=== PATIENT | male | born 1990 | race Caucasian/White ===

== ENCOUNTER 2021-09-25 12:48 | Emergency (ER) | payer OTHER ==
[2021-09-25 13:24] LABS: Absolute Lymphocytes (CBC) 2.7 K/uL (0.7-4.9); Hematocrit 41.4 % (39.6-49.0); Lymphocytes % 25.6 % (15.3-44.8); MCV 86.4 fL (80-100); MPV 6.8 fL (7.6-11.3)
[2021-09-25 13:29] LABS: Protime INR 1.11
[2021-09-25 13:42] LABS: Potassium 3.8 mmol/L (3.5-5.1); Troponin High Sensitivity 49.2 pg/mL (<58.9)
[2021-09-25 13:51] LABS: Urine Blood Negative (Negative); Urine Glucose Negative (Negative); Urine Protein Negative (Negative); Urine Specific Gravity >=1.030 (1.005-1.030); Urine pH 5.5 (5.0-7.0)
[2021-09-25 14:04] LABS: Barbiturates NEGATIVE (NEGATIVE); Benzodiazepines NEGATIVE (NEGATIVE); Cocaine NEGATIVE (NEGATIVE); METHAMPHETAM NEGATIVE (NEGATIVE); Methadone NEGATIVE (NEGATIVE); Opiates NEGATIVE (NEGATIVE); Phencyclidine NEGATIVE (NEGATIVE); THC Cannibis NEGATIVE (NEGATIVE)
--- NOTE | 2021-09-25 14:07 | RAD REPORT ---
EXAM DESCRIPTION: RAD - Chest Single View - 09/25/2021 1:51 pm CLINICAL HISTORY: CHEST PAIN Chest pain. COMPARISON: No comparisons FINDINGS: Portable technique limits examination quality. The lungs are grossly clear. The heart is normal in size. No displaced fractures. IMPRESSION: No acute intrathoracic process suspected.
[2021-09-25 14:13] LABS: T3 Free 3.1 pg/mL (2.18-3.98); Thyroid Stimulating Hormone 0.759 uIU/mL (0.360-3.740)
--- NOTE | 2021-09-25 17:55 | EDPHYS ---
Physician Documentation [facility] Name: Kyree Flower Age: 31 yrs Sex: Male : 1990 Arrival Date: 09/25/2021 Time: 12:50 Bed 14 Private MD: Sarwat Uribe E ED Physician Cruz Rodriguez HPI: 09/25 13:25 This 31 yrs old Male presents to ER via Ambulatory with complaints of Palpitations, cp Chest Pain. 13:25 The patient presents with a history of heart racing. Context: The symptoms occur at cp rest. 13:25 Onset: The symptoms/episode began/occurred this past weekend. cp 13:25 Duration: The patient or guardian reports multiple episodes, that are intermittent, cp with no pattern. Associated signs and symptoms: Pertinent positives: chest pain, Pertinent negatives: cough, fever, lightheadedness, syncope, vomiting. Severity of symptoms: in the emergency department the symptoms have improved markedly. Historical: - Allergies: 13:04 No Known Allergies; iw - Home Meds: 13:04 None [Active]; iw - PMHx: 13:04 None; iw - Immunization history:: Adult Immunizations up to date, Client reports having NOT received the Covid vaccine. - Social history:: Smoking status: Patient denies any tobacco usage or history of. Patient/guardian denies using alcohol. ROS: 13:30 Constitutional: Negative for body aches, chills, fever, poor PO intake. cp 13:30 Cardiovascular: Positive for palpitations, Negative for chest pain, edema. cp 13:30 Respiratory: Negative for cough, shortness of breath, wheezing. 13:30 Eyes: Negative for injury, pain, redness, and discharge. cp 13:30 ENT: Negative for drainage from ear(s), ear pain, sore throat, difficulty swallowing, difficulty handling secretions. 13:30 Abdomen/GI: Negative for abdominal pain, nausea, vomiting, and diarrhea, constipation. 13:30 Back: Negative for pain at rest, pain with movement, radiated pain. cp 13:30 Neuro: Negative for altered mental status, dizziness, headache, numbness, syncope, weakness. 13:30 All other systems are negative. Exam: 13:30 ECG was reviewed by the Attending Physician. cp 13:35 Constitutional: The patient appears in no acute distress, alert, awake, cp non-diaphoretic, non-toxic, well developed, well nourished. 13:35 Head/Face: Normocephalic, atraumatic. cp 13:35 Eyes: Periorbital structures: appear normal, Conjunctiva: normal, no exudate, no injection, Sclera: no appreciated abnormality, Lids and lashes: appear normal, bilaterally. 13:35 ENT: External ear(s): are unremarkable, Nose: is normal, Mouth: Lips: moist, Oral mucosa: pink and intact, moist, Posterior pharynx: Airway: no evidence of obstruction, patent. 13:35 Neck: ROM/movement: is normal, is supple, without pain, no range of motions limitations. 13:35 Chest/axilla: Inspection: normal. 13:35 Cardiovascular: Rate: normal, Rhythm: regular, Edema: is not appreciated, JVD: is not appreciated. 13:35 Respiratory: the patient does not display signs of respiratory distress, Respirations: normal, no use of accessory muscles, no retractions, labored breathing, is not present, Breath sounds: are clear throughout, no decreased breath sounds, no stridor, no wheezing. 13:35 Abdomen/GI: Inspection: abdomen appears normal, Palpation: abdomen is soft and non-tender, in all quadrants. 13:35 Back: pain, is absent, ROM is normal. 13:35 Neuro: Orientation: to person, place \T\ time. Mentation: is normal, Cerebellar function: is grossly normal, Motor: moves all fours, strength is normal, Sensation: is normal. Vital Signs: 13:05 BP 117 / 80; Pulse 88; Resp 16; Temp 97.8; Pulse Ox 97% on R/A; iw 15:01 BP 114 / 64; Pulse 74; Resp 18; Pulse Ox 96% on R/A; ld1 16:18 BP 108 / 73; Pulse 63; Resp 18; Pulse Ox 97% on R/A; ld1 17:42 BP 106 / 64; Pulse 60; Resp 18; Pulse Ox 98% on R/A; ld1 MDM: 13:06 Patient medically screened. [facility] 17:54 Data reviewed: vital signs, nurses notes, lab test result(s), EKG, radiologic studies, cp plain films. 17:54 Test interpretation: by ED physician or midlevel provider: ECG, plain radiologic cp studies. 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 Special discussion: Based on the patient's history, exam, and Dx evaluation, there is no indication for emergent intervention or inpatient Tx. It is understood by the patient/guardian that if the Sx's persist or worsen they need to return immediately for re-evaluation. 09/25 13:05 Order name: Basic Metabolic Panel; Complete Time: 15:00 iw 09/25 15:00 Interpretation: Normal except: GLUC 121; GFR 85. cp 09/25 13:05 Order name: CBC with Diff; Complete Time: 15:00 iw 09/25 15:00 Interpretation: Normal except: PLT 434; MPV 6.8. cp 09/25 13:05 Order name: PT-INR; Complete Time: 15:00 iw 09/25 13:05 Order name: Troponin HS; Complete Time: 15:00 iw 09/25 15:10 Interpretation: Troponin HS 49.2; Reviewed. cp 09/25 13:23 Order name: D-Dimer; Complete Time: 15:00 cp 09/25 15:00 Interpretation: Reviewed. cp 09/25 13:23 Order name: UDS; Complete Time: 15:00 cp 09/25 13:05 Order name: XRAY Chest (1 view); Complete Time: 15:00 iw 09/25 13:05 Order name: EKG; Complete Time: 13: iw 09/25 13:05 Order name: Cardiac monitoring; Complete Time: 13: iw 09/25 13:05 Order name: EKG - Nurse/Tech; Complete Time: 13: iw 09/25 13:23 Order name: TSH; Complete Time: 15:00 cp 09/25 13:23 Order name: T3 Free; Complete Time: 15:00 cp 09/25 13:51 Order name: Urine Dipstick-Ancillary; Complete Time: 15:00 EDMS 09/25 15:23 Order name: Troponin High Sensitivity: repeat \T\1630; Complete Time: 17:45 cp 09/25 17:46 Interpretation: Reviewed. cp 09/25 13:05 Order name: IV Saline Lock; Complete Time: 13:18 iw 09/25 13:05 Order name: Labs collected and sent; Complete Time: : iw 09/25 13:05 Order name: O2 Per Protocol; Complete Time: 13: iw 09/25 13:05 Order name: O2 Sat Monitoring; Complete Time: : iw 09/25 13:23 Order name: Urine Dipstick-Ancillary (obtain specimen); Complete Time: 13:51 cp EC:30 Rate is 80 beats/min. Rhythm is regular. WI interval is normal. QRS interval is normal. cp QT interval is normal. T waves are Inverted in lead aVR. Interpreted by me. Reviewed by me. Administered Medications: No medications were administered Disposition Summary: 09/25/21 17:54 Discharge Ordered Location: Home cp Problem: new cp Symptoms: have improved cp Condition: Stable cp Diagnosis - Palpitations cp - Chest pain, unspecified cp Followup: cp - With: Yusef Ortiz MD - When: 2 - 3 days - Reason: Recheck today's complaints Discharge Instructions: - Discharge Summary Sheet cp - Nonspecific Chest Pain, Adult cp - Palpitations cp - Aspirin and Your Heart cp Forms: - Medication Reconciliation Form cp - Thank You Letter cp - Antibiotic Education cp - Prescription Opioid Use cp Signatures: Dispatcher [employer] Cruz Razo MD MD cha Williams, Irene, RN Cruz German PA PA cp Nichole Valero, RN RN ld1
--- NOTE | 2021-09-25 17:55 | ER ---
Nurse's Notes [facility] Name: Kyree Flower Age: 31 yrs Sex: Male : 1990 Arrival Date: 09/25/2021 Time: 12:50 Bed 14 Private MD: Sarwat Uribe E Diagnosis: Palpitations;Chest pain, unspecified Presentation: 09/25 13:03 Chief complaint: Patient states: chest palpitations started this weekend. Coronavirus iw screen: At this time, the client does not indicate any symptoms associated with coronavirus-19. Ebola Screen: Patient negative for fever greater than or equal to 101.5 degrees Fahrenheit, and additional compatible Ebola Virus Disease symptoms Patient denies exposure to infectious person. Patient denies travel to an Ebola-affected area in the 21 days before illness onset. No symptoms or risks identified at this time. Initial Sepsis Screen: Does the patient meet any 2 criteria? No. Patient's initial sepsis screen is negative. Does the patient have a suspected source of infection? No. Patient's initial sepsis screen is negative. Risk Assessment: Do you want to hurt yourself or someone else? Patient reports no desire to harm self or others. Onset of symptoms was September 23, 2021. 13:03 Method Of Arrival: Ambulatory iw 13:03 Acuity: SHANTEL 3 iw Historical: - Allergies: 13:04 No Known Allergies; iw - Home Meds: 13:04 None [Active]; iw - PMHx: 13:04 None; iw - Immunization history:: Adult Immunizations up to date, Client reports having NOT received the Covid vaccine. - Social history:: Smoking status: Patient denies any tobacco usage or history of. Patient/guardian denies using alcohol. Screenin:19 Abuse screen: Denies threats or abuse. Denies injuries from another. Nutritional ld1 screening: No deficits noted. Tuberculosis screening: No symptoms or risk factors identified. Fall Risk None identified. Assessment: 13:19 General: Appears in no apparent distress. comfortable, Behavior is calm, cooperative, ld1 appropriate for age. Pain: Complains of pain in chest Pain does not radiate. Pain currently is 8 out of 10 on a pain scale. Quality of pain is described as throbbing, Pain began 2-3 days ago. Neuro: Level of Consciousness is awake, alert, obeys commands, Oriented to person, place, time, situation. Cardiovascular: Capillary refill < 3 seconds Patient's skin is warm and dry. Rhythm is sinus rhythm. Respiratory: Airway is patent Respiratory effort is even, unlabored. GI: Abdomen is flat, non-distended. : No signs and/or symptoms were reported regarding the genitourinary system. EENT: No signs and/or symptoms were reported regarding the EENT system. Derm: No signs and/or symptoms reported regarding the dermatologic system. Musculoskeletal: No signs and/or symptoms reported regarding the musculoskeletal system. Vital Signs: 13:05 BP 117 / 80; Pulse 88; Resp 16; Temp 97.8; Pulse Ox 97% on R/A; iw 15:01 BP 114 / 64; Pulse 74; Resp 18; Pulse Ox 96% on R/A; ld1 16:18 BP 108 / 73; Pulse 63; Resp 18; Pulse Ox 97% on R/A; ld1 17:42 BP 106 / 64; Pulse 60; Resp 18; Pulse Ox 98% on R/A; ld1 ED Course: 12:50 Patient arrived in ED. rg4 12:50 Sarwat Uribe MD is Private Physician. rg4 13:04 Triage completed. iw 13:04 Arm band placed on. iw 13:05 Cruz Boyle PA is PHCP. cp 13:05 Cruz Rodriguez MD is Attending Physician. cp 13:17 Nichole Valero, KELLY is Primary Nurse. ld1 13:19 Patient has correct armband on for positive identification. Placed in gown. Bed in low ld1 position. Call light in reach. Side rails up X2. quality assurance monitor body on. Pulse ox on. NIBP on. Door closed. Noise minimized. Warm blanket given. 13:19 No provider procedures requiring assistance completed. Patient maintains SpO2 ld1 saturation greater than 95% on room air. 13:51 UDS Sent. ld1 13:51 T3 Free Sent. ld1 13:51 TSH Sent. ld1 13:51 D-Dimer Sent. ld1 13:53 XRAY Chest (1 view) In Process Unspecified. EDMS 17:53 Yusef Ortiz MD is Referral Physician. cp 18:04 IV discontinued, intact, bleeding controlled, No redness/swelling at site. ld1 Administered Medications: No medications were administered Medication: 13:19 VIS not applicable for this client. ld1 Outcome: 17:54 Discharge ordered by . arvin 18:04 Discharged to home ambulatory. ld1 18:04 Condition: stable 18:04 Discharge instructions given to patient, Instructed on discharge instructions, follow up and referral plans. Demonstrated understanding of instructions, follow-up care. 18:05 Patient left the ED. ld1 Signatures: Dispatcher [employer] EDBrianna Arnett RN RN Cruz Reyez PA PA cp Garcia, Rubi rg4 Nichole Valero RN RN ld1
[2021-09-25 19:12] VITALS: TEMP 97.8
[2021-09-25 19:18] VITALS: BP 106/64; O2SAT 98
--- NOTE | 2021-09-26 07:55 | EKG ---
Test Date: 2021-09-25 Test Time: 13:08:59 Data Integration Developer: JR Butler MEASUREMENT RESULTS: Intervals: Rate: 80 KS: 174 QRSD: 76 QT: 364 QTc: 419 [place]: P: 53 KS: 174 QRS: 20 T: 43 INTERPRETIVE STATEMENTS: Normal sinus rhythm Low voltage QRS Possible Inferior infarct, age undetermined Abnormal ECG No previous ECG available for comparison Electronically Signed On 09-26-21 07:52:38 CDT by Junior Pool
== END 2021-09-25 18:05 | disposition home or self-care (01) ==
LOC: ER 12:48
DX: R07.9 Chest pain, unspecified (principal); R00.2 Palpitations
CPT/HCPCS: 36415; 71045; 80048; 80307; 81003; 84443; 84481; 84484; 85025; 85379; 85610; 93005

== ENCOUNTER 2022-08-14 06:46 | Emergency (ER) | payer OTHER ==
[2022-08-14] MEDS ORDERED: KETOROLAC 30 MG/ML INJ ONE (07:22)
[2022-08-14] MEDS ORDERED: CEFTRIAXONE 1000 MG/VIAL ONE (07:22)
[2022-08-14] MEDS ORDERED: AZITHROMYCIN 250 MG TAB ONE (07:22)
[2022-08-14] MEDS ORDERED: ONDANSETRON 4 MG/2 ML VIAL ONE (07:22)
[2022-08-14 07:23] LABS: Lymphocytes % 39.9 % (15.3-44.8); MCV 85.5 fL (80-100); MPV 6.8 fL (7.6-11.3); RBC Red Blood Cell Count 5.15 M/uL (4.33-5.43)
[2022-08-14] MEDS ORDERED: NA CHLORIDE 0.9% 1,000 ML ONE (07:23)
[2022-08-14 07:49] LABS: Albumin 3.9 g/dL (3.4-5.0); Bilirubin Total 1.5 mg/dL (0.2-1.0); Potassium 3.9 mEq/L (3.5-5.1); Protein, Total 7.3 g/dL (6.4-8.2)
[2022-08-14 08:20] LABS: Specific Gravity 1.023 (1.005-1.030); Urine Bacteria None Seen /HPF (<20); Urine Bilirubin NEGATIVE (Negative); Urine Blood Trace (Negative); Urine Clarity Clear (Clear); Urine Color Light-Yellow (Yellow); Urine Glucose NEGATIVE (Negative); Urine Mucus Slight /HPF (None Seen); Urine Protein TRACE (Negative); Urine RBC <5 /HPF (None Seen); Urine Urobilinogen Normal (Normal); Urine pH 5.5 (5.0-7.0)
[2022-08-14 08:39] LABS: Platelet Estimate ADEQ
[2022-08-14 08:40] LABS: Blood Morphology Comment NOT SEEN (NOT SEEN)
--- NOTE | 2022-08-14 08:41 | RAD REPORT ---
EXAM DESCRIPTION: US - Scrotum Testicles - 08/14/2022 7:38 am CLINICAL HISTORY: Right Testicular pain COMPARISON: None FINDINGS: Right testicle measures 4.2 x 2.2 x 3 centimeters. Echotexture is homogeneous. Normal bloo d flow Left testicle measures 4 x 2.2 x 2.4 centimeters. Echotexture is homogeneous. Normal blood flow The epididymides are normal in size and echotexture. Normal blood flow is seen. IMPRESSION: Unremarkable exam
--- NOTE | 2022-08-14 09:01 | EDPHYS ---
Physician Documentation [facility] Name: Kyree Flower Age: 32 yrs Sex: Male : 1990 Arrival Date: 08/14/2022 Time: 06:46 Bed 13 Private MD: ED Physician Palmer Salazar HPI: 08/14 07:07 This 32 yrs old Male presents to ER via Ambulatory with complaints of rodrick Testicular Pain. 07:07 The patient presents with scrotal pain, of the right side. Onset: The symptoms/episode rodrick began/occurred 5 day(s) ago. Modifying factors: The symptoms are alleviated by remaining still, the symptoms are aggravated by movement. Associated signs and symptoms: The patient has no apparent associated signs or symptoms. Severity of symptoms: At their worst the symptoms were mild, moderate, in the emergency department the symptoms are actually worse, mildly. The patient has not experienced similar symptoms in the past. Historical: - Allergies: 06:58 No Known Allergies; as6 - Home Meds: 06:58 None [Active]; as6 - PMHx: 06:58 None; as6 - PSHx: 06:58 Vasectomy; skin ca removal; as6 - Immunization history:: Client reports receiving the 2nd dose of the Covid vaccine, moderna. - Social history:: Smoking status: Patient denies any tobacco usage or history of. ROS: 07:07 Constitutional: Negative for fever, chills, and weight loss, Eyes: Negative for injury, rodrick pain, redness, and discharge, ENT: Negative for injury, pain, and discharge, Neck: Negative for injury, pain, and swelling, Cardiovascular: Negative for chest pain, palpitations, and edema, Respiratory: Negative for shortness of breath, cough, wheezing, and pleuritic chest pain, Abdomen/GI: Negative for abdominal pain, nausea, vomiting, diarrhea, and constipation, Back: Negative for injury and pain, MS/Extremity: Negative for injury and deformity, Skin: Negative for injury, rash, and discoloration, Neuro: Negative for headache, weakness, numbness, tingling, and seizure, Psych: Negative for depression, anxiety, suicide ideation, homicidal ideation, and hallucinations, Allergy/Immunology: Negative for hives, rash, and allergies, Endocrine: Negative for neck swelling, polydipsia, polyuria, polyphagia, and marked weight changes, Hematologic/Lymphatic: Negative for swollen nodes, abnormal bleeding, and unusual bruising. 07:07 : Positive for testicular pain of the right testicle. Exam: 07:07 Constitutional: This is a well developed, well nourished patient who is awake, alert, rodrick and in no acute distress. Head/Face: Normocephalic, atraumatic. Eyes: Pupils equal round and reactive to light, extra-ocular motions intact. Lids and lashes normal. Conjunctiva and sclera are non-icteric and not injected. Cornea within normal limits. Periorbital areas with no swelling, redness, or edema. ENT: Nares patent. No nasal discharge, no septal abnormalities noted. Tympanic membranes are normal and external auditory canals are clear. Oropharynx with no redness, swelling, or masses, exudates, or evidence of obstruction, uvula midline. Mucous membranes moist. Neck: Trachea midline, no thyromegaly or masses palpated, and no cervical lymphadenopathy. Supple, full range of motion without nuchal rigidity, or vertebral point tenderness. No Meningismus. Chest/axilla: Normal chest wall appearance and motion. Nontender with no deformity. No lesions are appreciated. Cardiovascular: Regular rate and rhythm with a normal S1 and S2. No gallops, murmurs, or rubs. Normal PMI, no JVD. No pulse deficits. Respiratory: Lungs have equal breath sounds bilaterally, clear to auscultation and percussion. No rales, rhonchi or wheezes noted. No increased work of breathing, no retractions or nasal flaring. Abdomen/GI: Soft, non-tender, with normal bowel sounds. No distension or tympany. No guarding or rebound. No evidence of tenderness throughout. Back: No spinal tenderness. No costovertebral tenderness. Full range of motion. Skin: Warm, dry with normal turgor. Normal color with no rashes, no lesions, and no evidence of cellulitis. MS/ Extremity: Pulses equal, no cyanosis. Neurovascular intact. Full, normal range of motion. Neuro: Awake and alert, GCS 15, oriented to person, place, time, and situation. Cranial nerves II-XII grossly intact. Motor strength 5/5 in all extremities. Sensory grossly intact. Cerebellar exam normal. Normal gait. Psych: Awake, alert, with orientation to person, place and time. Behavior, mood, and affect are within normal limits. 07:07 : CVA tenderness, is absent, Male external genitalia: Circumcision noted. swelling: of the right testicle is noted, testicle, tenderness, of the right testicle is noted. Vital Signs: 06:58 BP 122 / 80; Pulse 59; Resp 18 S; Temp 98.4(O); Pulse Ox 100% on R/A; Weight 88.45 kg as6 (R); Height 5 ft. 9 in. (R); Pain 5/10; 07:41 BP 127 / 81; Pulse 48; Resp 18 S; Pulse Ox 100% on R/A; kc6 08:35 BP 109 / 66; Pulse 50; Resp 17 S; Pulse Ox 100% on R/A; kc6 06:58 Body Mass Index 28.80 (88.45 kg, 175.26 cm) as6 06:58 Pain Scale: Adult as6 MDM: 06:[address] [facility] 07:08 Differential diagnosis: nonspecific abdominal pain, UTI, urethritis. Data reviewed: [facility] vital signs, nurses notes, lab test result(s), radiologic studies, ultrasound. Consideration of Admission/Observation Escalation of care including admission/observation considered. I considered the following discharge prescriptions or medication management in the emergency department Medications were administered in the Emergency Department. See MAR. Test considered but Not performed: EKG: no ekg. Care significantly affected by the following chronic conditions: none vasectomy 1 yr ago. 08/14 07:07 Order name: CBC with Diff; Complete Time: 08:40 [facility] 08/14 07:07 Order name: Comprehensive Metabolic Panel; Complete Time: 08:25 [facility] 08/14 07:07 Order name: Urinalysis w/ reflexes; Complete Time: 08:25 [facility] 08/14 07:31 Order name: Manual Differential; Complete Time: 08:40 EDMS 08/14 07:07 Order name: US Scrotum Testicles; Complete Time: 08:42 [facility] Administered Medications: 07:40 Drug: NS 0.9% IV 1000 ml Route: IV; Rate: 1 bolus; Site: right forearm; kc6 09:08 Follow up: Response: No adverse reaction; IV Status: Completed infusion; IV Intake: kc6 1000ml 07:40 Drug: Ketorolac IVP 30 mg Route: IVP; Site: right forearm; kc6 09:08 Follow up: Response: No adverse reaction; Pain is decreased kc6 07:40 Drug: Ondansetron IVP 4 mg Route: IVP; Site: right forearm; kc6 09:08 Follow up: Response: No adverse reaction kc6 07:40 Drug: Rocephin IV 1 grams Route: IV; Rate: per protocol; Site: right forearm; kc6 09:08 Follow up: Response: No adverse reaction; IV Status: Completed infusion; IV Intake: [id number] 07:40 Drug: AZITHromycin PO 1 grams Route: PO; kc6 09:08 Follow up: Response: No adverse reaction kc6 Disposition Summary: 08/14/22 09:00 Discharge Ordered Location: Home rt Problem: an ongoing problem rt Symptoms: have improved rt Condition: Stable rt Diagnosis - Right testicular pain rt Followup: rt - With: Nic Roa MD - When: 2 - 3 days - Reason: Discharge Instructions: - Discharge Summary Sheet rt - Epididymitis rt - Testicular Torsion, Adult rt Forms: - Medication Reconciliation Form rt - Thank You Letter rt - Antibiotic Education rt - Prescription Opioid Use rt - [email or web address] rt Prescriptions: - cefpodoxime 200 mg Oral Tablet - take 1 tablet by ORAL route every 12 hours with food; 20 tablet; Refills: 0, rt Product Selection Permitted Signatures: Dispatcher [employer] Cruz Razo MD MD cha Slawson, Ashby, RN RN as6 Lanny Campa RN RN kc6 [place], Ryan, MD MD rt
--- NOTE | 2022-08-14 09:01 | ER ---
Nurse's Notes [facility] Name: Kyree Flower Age: 32 yrs Sex: Male : 1990 Arrival Date: 08/14/2022 Time: 06:46 Bed 13 Private MD: Diagnosis: Right testicular pain Presentation: 08/14 06:58 Chief complaint: Patient states: right testicular pain that started a couple days ago as6 and woke up this morning with worsening pain. Coronavirus screen: At this time, the client does not indicate any symptoms associated with coronavirus-19. Ebola Screen: No symptoms or risks identified at this time. Initial Sepsis Screen: Does the patient meet any 2 criteria? No. Patient's initial sepsis screen is negative. Does the patient have a suspected source of infection? No. Patient's initial sepsis screen is negative. Risk Assessment: Do you want to hurt yourself or someone else? Patient reports no desire to harm self or others. Onset of symptoms was August 12, 2022. 06:58 Acuity: SHANTEL 3 as6 06:58 Method Of Arrival: Ambulatory as6 Historical: - Allergies: 06:58 No Known Allergies; as6 - Home Meds: 06:58 None [Active]; as6 - PMHx: 06:58 None; as6 - PSHx: 06:58 Vasectomy; skin ca removal; as6 - Immunization history:: Client reports receiving the 2nd dose of the Covid vaccine, moderna. - Social history:: Smoking status: Patient denies any tobacco usage or history of. Screenin:17 [facility] ED Fall Risk Assessment (Adult) History of falling in the last 3 months, kc6 including since admission No falls in past 3 months (0 pts) Confusion or Disorientation No (0 pts) Intoxicated or Sedated No (0 pts) Impaired Gait No (0 pts) Mobility Assist Device Used No (0 pt) Altered Elimination No (0 pt) Score/Fall Risk Level 0 - 2 = Low Risk Oriented to surroundings, Maintained a safe environment, Educated pt \T\ family on fall prevention, incl call for assistance when getting out of bed, Assessed \T\ reinforced patient's understanding of fall precautions, Hourly rounding (assess needs \T\ fall precautionary measures) done. Abuse screen: Denies threats or abuse. Denies injuries from another. Nutritional screening: No deficits noted. Tuberculosis screening: No symptoms or risk factors identified. Assessment: 07:04 General: Appears in no apparent distress. comfortable, Behavior is calm, cooperative, kc6 appropriate for age. Pain: Complains of pain in right testicle Pain does not radiate. Pain currently is 5 out of 10 on a pain scale. at worst was 9 out of 10 on a pain scale. Quality of pain is described as dull, Is continuous. Neuro: Level of Consciousness is awake, alert, obeys commands, Oriented to person, place, time, situation, Appropriate for age. Cardiovascular: Capillary refill < 3 seconds. Respiratory: Airway is patent Trachea midline Respiratory effort is even, unlabored, Respiratory pattern is regular, symmetrical. GI: No signs and/or symptoms were reported involving the gastrointestinal system. : No signs and/or symptoms were reported regarding the genitourinary system. EENT: No signs and/or symptoms were reported regarding the EENT system. Derm: No signs and/or symptoms reported regarding the dermatologic system. Skin is intact, Skin is pink, warm \T\ dry. Musculoskeletal: No signs and/or symptoms reported regarding the musculoskeletal system. Circulation, motion, and sensation intact. Capillary refill < 3 seconds, Range of motion: intact in all extremities. 07:41 Reassessment: Patient appears in no apparent distress at this time. No changes from kc6 previously documented assessment. Patient and/or family updated on plan of care and expected duration. Pain level reassessed. Patient is alert, oriented x 3, equal unlabored respirations, skin warm/dry/pink. 08:35 Reassessment: Patient appears in no apparent distress at this time. No changes from kc6 previously documented assessment. Patient and/or family updated on plan of care and expected duration. Pain level reassessed. Patient is alert, oriented x 3, equal unlabored respirations, skin warm/dry/pink. Vital Signs: 06:58 BP 122 / 80; Pulse 59; Resp 18 S; Temp 98.4(O); Pulse Ox 100% on R/A; Weight 88.45 kg as6 (R); Height 5 ft. 9 in. (R); Pain 5/10; 07:41 BP 127 / 81; Pulse 48; Resp 18 S; Pulse Ox 100% on R/A; kc6 08:35 BP 109 / 66; Pulse 50; Resp 17 S; Pulse Ox 100% on R/A; kc6 06:58 Body Mass Index 28.80 (88.45 kg, 175.26 cm) as6 06:58 Pain Scale: Adult as6 ED Course: 06:49 Patient arrived in ED. jj6 06:52 Cruz Rodriguez MD is Attending Physician. rodrick 06:58 Arm band placed on. as6 07:00 Lanny Campa RN is Primary Nurse. kc6 07:02 Triage completed. as6 07:10 Attending Physician role handed off by Cruz Rodriguez MD rt 07:10 Palmer Salazar MD is Attending Physician. rt 07:17 Inserted saline lock: 20 gauge in right forearm, using aseptic technique. Blood kc6 collected. 07:18 Patient has correct armband on for positive identification. Bed in low position. Call kc6 light in reach. Side rails up X 1. 07:39 US Scrotum Testicles In Process Unspecified. EDMS 08:02 Urinalysis w/ reflexes Sent. vg1 08:59 Nic Roa MD is Referral Physician. rt 09:07 No provider procedures requiring assistance completed. IV discontinued, intact, kc6 bleeding controlled, No redness/swelling at site. Pressure dressing applied. Administered Medications: 07:40 Drug: NS 0.9% IV 1000 ml Route: IV; Rate: 1 bolus; Site: right forearm; kc6 09:08 Follow up: Response: No adverse reaction; IV Status: Completed infusion; IV Intake: kc6 1000ml 07:40 Drug: Ketorolac IVP 30 mg Route: IVP; Site: right forearm; kc6 09:08 Follow up: Response: No adverse reaction; Pain is decreased kc6 07:40 Drug: Ondansetron IVP 4 mg Route: IVP; Site: right forearm; kc6 09:08 Follow up: Response: No adverse reaction kc6 07:40 Drug: Rocephin IV 1 grams Route: IV; Rate: per protocol; Site: right forearm; kc6 09:08 Follow up: Response: No adverse reaction; IV Status: Completed infusion; IV Intake: [id number] 07:40 Drug: AZITHromycin PO 1 grams Route: PO; kc6 09:08 Follow up: Response: No adverse reaction kc6 Medication: 09:08 VIS not applicable for this client. kc6 Intake: :08 IV: 10ml; Total: 10ml. kc6 :08 IV: 1000ml; Total: 1010ml. kc6 Outcome: 09:00 Discharge ordered by . rt 09:08 Discharged to home ambulatory, with significant other. kc6 09:08 Condition: improved 09:08 Discharge instructions given to patient, Instructed on discharge instructions, follow up and referral plans. medication usage, Demonstrated understanding of instructions, follow-up care, medications, Prescriptions given X 1. 09:09 Patient left the ED. kc6 Signatures: Dispatcher [employer] EDTX Cruz Rodriguez MD MD cha Garcia, Victoria, RN RN vg1 Beata Orozco Ashby, RN RN [email or web address] Lanny Campa RN RN kc6 Palmer Salazar MD MD rt
[2022-08-14 09:17] VITALS: TEMP 98.4; O2SAT 100
[2022-08-14 09:22] VITALS: BP 109/66
== END 2022-08-14 09:09 | disposition home or self-care (01) ==
LOC: ER 06:46
DX: N50.811 Right testicular pain (principal)
CPT/HCPCS: 85025; 81001; 36415; 80053; 76870; J2405; J7030; J0696; 96365; 96375; 99284

== ENCOUNTER 2024-06-06 02:38 | Emergency (ER) | payer BC, OTHER ==
--- OUTSIDE RECORDS SUMMARY | 2024-06-06 02:40 | XMS REPORT | Continuity of Care Document ---
Author Name Unknown Address [address] [facility] [place] [address] [facility] Address [address] [facility] [address] [place] [address] Care Team Providers Care Adobe Architect Name Role Phone Walter Pacheco Attending Clinician Antoine ramesh Physician, No Primary or Family Admitting Clinic veronica Unavailable Payers Payer Name Policy Type Policy Number Effective Date Expirati on Date Source Problems Condition Name Condition Details Condition Category Status Onset Date Resolution Date Last Treatment Date Treating Clinician Comments Source [id number] Epididymal cyst Problem [facility] [id number] S/P vasectomy Problem [facility] [id number] Left testicular pain Problem [facility] [id number] Right testicular pain Problem [facility] [id number] Epididymoo rchitis Problem [facility] Social History Social Habit Start Date Stop Date Quantity Comments Source Sex Assigned At [facility] History of Tobacco Use [facility] Medications Ordered Medication Name Filled Medication Name Start Date Stop Date Current Medication? Ordering Clinician Indication Dosage Frequency Signature (SIG) Comments Components Source Doxycycline Hyclate 100 MG Doxycycline Hyclate 100 MG 08-15 00:00: 00 No 1{capsu le} BID Doxycyclin e Hyclate 100 MG Doxycycline Hyclate 100 MG Doxycycline Hyclate 100 MG 08-15 00:00: 00 No 1{capsu le} BID Doxycyclin e Hyclate 100 MG Vital Signs Vital Name Observation Time Observation Value Comments Shelia grace height 2022-09-13 11:00:00 69 [in_i] Commo n [facility] weight 2022-09-13 11:00:00 195.4 [lb_av] Co [facility] temperature 2022-09-13 11:00:00 98.2 [degF] Com [facility] bmi 2022-09-13 11:00:00 28.85 kg/m2 Comm on [facility] oximetry 2022-09-13 11:00:00 99 % Commo n [facility] respiratory rate 2022-09-13 11:00:00 18 /min [facility] blood pressure systolic 2022-09-13 11:00:00 120 mm[Hg] [facility] blood pressure diastolic 2022-09-13 11:00:00 65 mm[Hg] [facility] height 2022-08-15 09:45:00 69 [in_i] Commo n [facility] weight 2022-08-15 09:45:00 194.4 [lb_av] Co [facility] temperature 2022-08-15 09:45:00 98.3 [degF] Com [facility] bmi 2022-08-15 09:45:00 28.7 kg/m2 Commo n [facility] oximetry 2022-08-15 09:45:00 99 % Commo n [facility] respiratory rate 2022-08-15 09:45:00 18 /min [facility] blood pressure systolic 2022-08-15 09:45:00 116 mm[Hg] [facility] blood pressure diastolic 2022-08-15 09:45:00 67 mm[Hg] [facility] Encounters Start Date/Time End Date/Time Encounter Type Admission Type Attending [facility] Care Facility Care Department Encounter ID Source 2022-12-10 13:21:00 Outpatient [facility] ST[facility] [id number] [facility] 2022-08-15 09:43:01 Outpatient [facility]LMLC STLMLC [id number] [facility] 2023-03-28 07:33:00 2023-03-28 07:33:00 Outpatient Walter Aleman [facility] ECHO [id number] [facility] [place], operated [facility] 2022-09-13 00:00:00 2022-09-13 00:00:00 OFFICE VISIT ESTAB PT LEVEL 4 [facility]LMLC STLMLC [id number] [facility] 2022-08-15 00:00:00 2022-08-15 00:00:00 OFFICE VISIT NEW PT LEVEL 3 STLMLC STLMLC [id number] [facility] Notes Date/Time Note Provider Source 2023-03-30 10:42:00 [id number] [facility] [address] [place] [id number] PATIENT NAME: BRIGHT FLOWER ADMIT DATE: 03/28/23 ACCOUNT NO: [id number] ROOM NO: AGE: 32 REPORT TYPE: eECHOCARDIOGRAM REPORT SEX: M ADMITTING PHYSICIAN: ATTENDING PHYSICIAN: Walter Pacheco DO *[facility]* [id number] [place] [id number] Transthoracic Echocardiogram Patient: Bright Flower Study Date: 03/28/2023 BP: URN: [id number] Location: : 1990 Age: 32 Gender: M Height: 69 in / 175.3 cm Weight: 195 lb / 88.5 kg BMI/BSA: 28.8 kg/m 2 / 2.1 m 2 *Ordering Physician: * Walter PachecoInterpreting Physician: * Kit Beckman MD *Automatic Washer Mechanic: * Jacquelin Goldsmith Indications: Ischemic Heart Disease. Study data: Transthoracic echocardiogram. Procedure: A transthoracic echocardiogram was performed. Image quality was adequate. Complete 2D, 3D, complete spectral Doppler, color Doppler, tissue Doppler, and speckle tracking. Location: Echo laboratory. Patient status: Outpatient. Study status: Routine. Heart rate: 59 bpm. Findings Left ventricle: The cavity size is normal. Wall thickness is normal. Systolic function is normal. The estimated ejection fraction is 55-60%. Wall motion is normal; there are no regional wall motion abnormalities. Left ventricular diastolic function parameters are normal. PATIENT NAME: BRIGHT FLOWER Right ventricle: The cavity size is normal. Systolic function is normal. Left atrium: The atrium is normal in size. Right atrium: The atrium is normal in size. Aorta: Aortic root: The root is normal-sized. Aortic valve: The valve is structurally normal. The valve is trileaflet. There is no evidence of stenosis. There is no regurgitation. Mitral valve: The valve is structurally normal. Prolapse cannot be excluded. There is no evidence of stenosis. There is mild regurgitation. Tricuspid valve: The valve is structurally normal. There is mild regurgitation. Pulmonic valve: The valve is structurally normal. There is mild regurgitation. Pericardium: There is no pericardial effusion. Pulmonary arteries: The main pulmonary artery is normal-sized. Systemic veins: Inferior vena cava: The IVC is normal-sized. Measurements Left ventricle Value Ref GLS, 2D -18 % --------- MIKALA, LAX 5.2 cm 4.2 - 5.8 ESD, LAX 3.6 cm 2.5 - 4.0 FS, LAX 32 % 25 - 43 IVS, ED 0.9 cm 0.6 - 1.0 PW, ED 0.9 cm 0.6 - 1.0 IVS/PW, ED 1.02 --------- EF 60 % 52 - 72 IVRT 103 ms --------- LVOT Value Ref Diam, S 2.11 cm --------- Area 3.5 cm 2 --------- Peak sydnee, S 1.16 m/sec --------- Mean sydnee, S 0.89 m/sec --------- VTI, S 23.5 cm --------- Peak grad, S 5 mm Hg --------- Mean grad, S 3 mm Hg --------- SV 82 ml --------- SV/bsa 39 ml/m 2 --------- Right ventricle Value Ref TAPSE, MM 2.5 cm >=1.7 Left atrium Value Ref Vol/bsa, ES, 1-p A4C 21 ml/m 2 12 - 37 Vol/bsa, ES, A/L 24 ml/m 2 16 - 34 AP dim, ES MM 3.6 cm 3.0 - 4.0 LA/Ao root ratio, MM 1.32 --------- Right atrium Value Ref Area, ES 16 cm 2 10 - 18 PATIENT NAME: BRIGHT FLOWER SI dim, ES, A4C 5.4 cm 3.4 - 5.3 Vol, ES, A/L 42 ml --------- Vol, ES, 1-p A4C 40 ml --------- Vol/bsa, ES, 1-p A4C 19 ml/m 2 11 - 39 Aortic valve Value Ref Leaflet sep, MM 1.81 cm --------- Peak v, S 1.7 m/sec --------- Mean v, S 1.14 m/sec --------- VTI, S 32.4 cm --------- Mean grad, S 6 mm Hg --------- Peak grad, S 11.3 mm Hg --------- LVOT/AV, VTI ratio 0.73 --------- EVERETT, VTI 2.53 cm 2 --------- LVOT/AV, Vpeak ratio 0.69 --------- EVERETT, Vmax 2.41 cm 2 --------- Mitral valve Value Ref Peak E 0.93 m/sec --------- Peak A 0.51 m/sec --------- Decel time 198 ms --------- PHT 63 ms --------- Peak grad, D 3.4 mm Hg --------- Peak E/A ratio 1.82 --------- MVA, PHT 3.5 cm 2 --------- Pulmonic valve Value Ref KS peak v 1.05 m/sec --------- KS peak grad 4 mm Hg --------- Tricuspid valve Value Ref TR peak v 2.7 m/sec <=2.8 Peak RV-RA grad, S 30 mm Hg --------- Aortic root Value Ref Root diam, ED MM 2.7 cm --------- Systemic veins Value Ref Estimated CVP 5 mm Hg --------- Pulmonary veins Value Ref A rev duration 103 ms --------- Conclusions Summary: 1. Left ventricle: The cavity size is normal. Wall thickness is normal. Systolic function is normal. The estimated ejection fraction is 55-60%. Wall motion is normal; there are no regional wall motion abnormalities. Left ventricular diastolic function parameters are normal. Global left ventricular strain is preserved. 2. Mitral valve: Prolapse cannot be excluded. PATIENT NAME: BRIGHT FLOWER 3. Tricuspid valve: The peak RV-RA systolic gradient is 30 mm Hg. Electronically signed by Kit Beckman MD 03/30/2023 10:41 at 1042 PATIENT NAME: BRIGHT FLOWER [facility]
[2024-06-06] MEDS ORDERED: ONDANSETRON 4 MG/2 ML VIAL ONE (02:49)
[2024-06-06] MEDS ORDERED: NA CHLORIDE 0.9% 1,000 ML ONE (02:50)
[2024-06-06] MEDS ORDERED: MORPHINE 4 MG/ML SYR ONE ×2 (02:50→03:39)
[2024-06-06] MEDS ORDERED: FAMOTIDINE 20 MG/2 ML VIAL IV ONE (02:57)
[2024-06-06 03:04] LABS: Absolute Basophils 0.1 K/uL (0-0.5); Absolute Eosinophils 0.2 K/uL (0-0.5); Absolute Lymphocytes (CBC) 4.6 K/uL (0.7-4.9); Absolute Neutrophil 2.8 K/uL (1.8-8.0); Basophils % 0.8 % (0-1.3); Eosinophils % 2.3 % (0-4.4); Hematocrit 44.8 % (39.6-49.0); Hemoglobin 15.4 g/dL (13.6-17.9); Lymphocytes % 52.8 % (15.3-44.8); MCHC 34.4 g/dL (32.0-36.0); MCV 84.3 fL (80-100); MPV 6.6 fL (7.6-11.3); Monocytes % 11.8 % (3.3-12.3); Neutrophils % 32.3 % (41.7-73.7); Nucleated Red Blood Cells % 0.2 % (0-0); Platelets 331 thou/uL (152-406); RBC Red Blood Cell Count 5.32 M/uL (4.33-5.43); Red Cell Distribution Width 13.8 % (12.1-15.2)
[2024-06-06 03:22] LABS: Anion Gap 9.4 mEq/L (5.0-15.0); Potassium 3.4 mEq/L (3.5-5.1)
[2024-06-06] MEDS ORDERED: METOCLOPRAMIDE 10 MG/2mL INJ ONE (03:38)
[2024-06-06] MEDS ORDERED: MAGNES/ALUMIN/SIMET 30ML UCUP ONE (03:38)
[2024-06-06] MEDS ORDERED: PANTOPRAZOLE 40 MG INJ ONE (03:38)
[2024-06-06] MEDS ORDERED: droPERidol 5 MG/2 ML VIAL ONE (03:38)
[2024-06-06] MEDS ORDERED: LIDOCAINE VISCOUS 2% 10ML ORAL SOLN ONE (03:40)
--- NOTE | 2024-06-06 05:51 | RAD REPORT ---
EXAM: XR Chest, 1 View CLINICAL HISTORY: The patient is 33 years old and is Male; CHEST PAIN TECHNIQUE: Frontal view of the chest. COMPARISON: No relevant prior studies available. FINDINGS: Lungs: Unremarkable. No consolidation. Pleural space: Unremarkable. No pneumothorax. Heart: Unremarkable. Mediastinum: Unremarkable. Normal mediastinal contour. Bones/joints: No acute findings. * A single impression for all exams can be found at the end of this report EXAM: CT Abdomen and Pelvis With Intravenous Contrast CLINICAL HISTORY: The patient is 33 years old and is Male; CHEST PAIN TECHNIQUE: Axial computed tomography images of the abdomen and pelvis with intravenous contrast. Sagittal and coronal reformatted images were created and reviewed. This CT exam was performed using one or more of the following dose reduction techniques: automated exposure control, adjustmen t of the mA and/or kV according to patient size, and/or use of iterative reconstruction technique. COMPARISON: No relevant prior studies available. FINDINGS: Lung bases: Unremarkable. No mass. No consolidation. ABDOMEN: Liver: Unremarkable. No mass. Gallbladder and bile ducts: Cholelithiasis. No ductal dilation. Pancreas: Unremarkable. No mass. No ductal dilation. Spleen: Unremarkable. No splenomegaly. Adrenals: Unremarkable. No mass. Kidneys and ureters: Unremarkable. No solid mass. No hydronephrosis. Stomach and bowel: Scattered colonic diverticula. No obstruction. No mucosal thickening. PELVIS: Appendix: No findings to suggest acute appendicitis. Bladder: Unremarkable. Reproductive: Unremarkable as visualized. ABDOMEN and PELVIS: Intraperitoneal space: Unremarkable. No free air. No significant fluid collection. Bones/joints: No acute fracture. No dislocation. Soft tissues: Unremarkable. Vasculature: Unremarkable. No abdominal aortic aneurysm. Lymph nodes: Unremarkable. No enlarged lymph nodes. * A single impression for all exams can be found at the end of this report EXAM: US Abdomen Limited, Gallbladder CLINICAL HISTORY: The patient is 33 years old and is Male; CHEST PAIN TECHNIQUE: Real-time ultrasound of the right upper quadrant with image documentation. COMPARISON: No relevant prior studies available. FINDINGS: Gallbladder: Cholelithiasis. Gallbladder sludge. No gallbladder wall thickening. No pericholecyst ic fluid. Common bile duct: Common bile duct is normal. No stones. No dilation. * A single impression for all exams can be found at the end of this report IMPRESSION: XR Chest, 1 View: No acute findings in the chest. CT Abdomen and Pelvis With Intravenous Contrast: No acute finding in the abdomen/pelvis. US Abdomen Limited, Gallbladder: Cholelithiasis. Gallbladder sludge. No gallbladder wall thickening. No pericholecystic fluid. Electronically signed by: Bird Barrow MD 06/06/2024 05:03 AM CDT RP 8 Due to temporary technical issues with the PACS/[employer] reporting system, reports are being yousif d by the in-house radiologist without review as a courtesy to ensure prompt reporting the interpreting radiologist is fully responsible for the content of the report. Transcribed Date/Time: 06/06/2024 5:50 AM
--- NOTE | 2024-06-06 06:20 | RAD REPORT ---
EXAM: US Abdomen Limited, Gallbladder CLINICAL HISTORY: The patient is 33 years old and is Male; CHEST PAIN TECHNIQUE: Real-time ultrasound of the right upper quadrant with image documentation. COMPARISON: No relevant prior studies available. FINDINGS: Gallbladder: Cholelithiasis. Gallbladder sludge. No gallbladder wall thickening. No pericholecyst ic fluid. Common bile duct: Common bile duct is normal. No stones. No dilation. IMPRESSION: XR Chest, 1 View: No acute findings in the chest. CT Abdomen and Pelvis With Intravenous Contrast: No acute finding in the abdomen/pelvis. US Abdomen Limited, Gallbladder: Cholelithiasis. Gallbladder sludge. No gallbladder wall thickening. No pericholecystic fluid. Electronically signed by: Bird Barrow MD 06/06/2024 05:03 AM CDT RP 8 Due to temporary technical issues with the PACS/[employer] reporting system, reports are being sign ed by the in-house radiologist without review as a courtesy to ensure prompt reporting the interpreting rad iologist is fully responsible for the content of the report. Transcribed Date/Time: 06/06/2024 6:19 AM
--- NOTE | 2024-06-06 06:25 | RAD REPORT ---
EXAM: XR Chest, 1 View CLINICAL HISTORY: The patient is 33 years old and is Male; CHEST PAIN TECHNIQUE: Frontal view of the chest. COMPARISON: No relevant prior studies available. FINDINGS: Lungs: Unremarkable. No consolidation. Pleural space: Unremarkable. No pneumothorax. Heart: Unremarkable. Mediastinum: Unremarkable. Normal mediastinal contour. Bones/joints: No acute findings. * A single impression for all exams can be found at the end of this report EXAM: CT Abdomen and Pelvis With Intravenous Contrast CLINICAL HISTORY: The patient is 33 years old and is Male; CHEST PAIN TECHNIQUE: Axial computed tomography images of the abdomen and pelvis with intravenous contrast. Sagittal and coronal reformatted images were created and reviewed. This CT exam was performed using one or more of the following dose reduction techniques: automated exposure control, adjustmen t of the mA and/or kV according to patient size, and/or use of iterative reconstruction technique. COMPARISON: No relevant prior studies available. FINDINGS: Lung bases: Unremarkable. No mass. No consolidation. ABDOMEN: Liver: Unremarkable. No mass. Gallbladder and bile ducts: Cholelithiasis. No ductal dilation. Pancreas: Unremarkable. No mass. No ductal dilation. Spleen: Unremarkable. No splenomegaly. Adrenals: Unremarkable. No mass. Kidneys and ureters: Unremarkable. No solid mass. No hydronephrosis. Stomach and bowel: Scattered colonic diverticula. No obstruction. No mucosal thickening. PELVIS: Appendix: No findings to suggest acute appendicitis. Bladder: Unremarkable. Reproductive: Unremarkable as visualized. ABDOMEN and PELVIS: Intraperitoneal space: Unremarkable. No free air. No significant fluid collection. Bones/joints: No acute fracture. No dislocation. Soft tissues: Unremarkable. Vasculature: Unremarkable. No abdominal aortic aneurysm. Lymph nodes: Unremarkable. No enlarged lymph nodes. * A single impression for all exams can be found at the end of this report EXAM: US Abdomen Limited, Gallbladder CLINICAL HISTORY: The patient is 33 years old and is Male; CHEST PAIN TECHNIQUE: Real-time ultrasound of the right upper quadrant with image documentation. COMPARISON: No relevant prior studies available. FINDINGS: Gallbladder: Cholelithiasis. Gallbladder sludge. No gallbladder wall thickening. No pericholecyst ic fluid. Common bile duct: Common bile duct is normal. No stones. No dilation. * A single impression for all exams can be found at the end of this report IMPRESSION: XR Chest, 1 View: No acute findings in the chest. CT Abdomen and Pelvis With Intravenous Contrast: No acute finding in the abdomen/pelvis. US Abdomen Limited, Gallbladder: Cholelithiasis. Gallbladder sludge. No gallbladder wall thickening. No pericholecystic fluid. Electronically signed by: Bird Barrow MD 06/06/2024 05:03 AM CDT RP 8 Due to temporary technical issues with the PACS/[employer] reporting system, reports are being yousif d by the in-house radiologist without review as a courtesy to ensure prompt reporting the interpreting radiologist is fully responsible for the content of the report. Transcribed Date/Time: 06/06/2024 6:24 AM
[2024-06-06 06:45] LABS: Lipase 43 U/L (13-75)
[2024-06-06 06:48] LABS: C-Reactive Protein < 2.90 mg/L (<3.00)
--- NOTE | 2024-06-06 07:25 | ER ---
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 Worse sitting vc1 feels better with movement. Coronavirus screen: Client denies travel out of the [place] in the last 14 days. At this time, the client does not indicate any symptoms associated with coronavirus-19. Ebola Screen: Patient negative for fever greater than or equal to 101.5 degrees Fahrenheit, and additional compatible Ebola Virus Disease symptoms Patient denies exposure to infectious person. Patient denies travel to an Ebola-affected area in the 21 days before illness onset. No symptoms or risks identified at this time. Initial Sepsis Screen: Does the patient meet any 2 criteria? No. Patient's initial sepsis screen is negative. Does the patient have a suspected source of infection? No. Patient's initial sepsis screen is negative. Risk Assessment: Do you want to hurt yourself or someone else? Patient reports no desire to harm self or others. Onset of symptoms was June 06, 2024 at 02:30. 02:55 Method Of Arrival: Ambulatory vc1 02:55 Acuity: SHANTEL 3 vc1 Triage Assessment: 03:04 General: Appears distressed, uncomfortable, well groomed, well developed, well vc1 nourished, Behavior is cooperative, anxious. Pain: Complains of pain in epigastric area Pain does not radiate. Pain currently is 8 out of 10 on a pain scale. Quality of pain is described as crampy, sharp, Pain began suddenly, 1 hour ago. Is continuous, Aggravated by sitting Noted to be restless. EENT: No deficits noted. No signs and/or symptoms were reported regarding the EENT system. Neuro: Level of Consciousness is awake, alert, obeys commands, Oriented to person, place, time, situation, Appropriate for age. Cardiovascular: Capillary refill < 3 seconds Patient's skin is warm and dry. Respiratory: Airway is patent Respiratory effort is even, unlabored, Respiratory pattern is regular, symmetrical, Breath sounds are clear bilaterally. GI: Abdomen is flat, non-distended, Reports epigastric pain, Patient currently denies nausea, vomiting. : No deficits noted. No signs and/or symptoms were reported regarding the genitourinary system. Derm: Skin is intact, is healthy with good turgor, Skin is dry, Skin is normal, Skin temperature is warm. Musculoskeletal: Circulation, motion, and sensation intact. Range of motion: intact in all extremities. Historical: - Allergies: 03:02 No Known Allergies; vc1 - Home Meds: 03:02 None [Active]; vc1 - PMHx: 03:02 None; vc1 - PSHx: 03:02 skin ca removal; Vasectomy; vc1 - Immunization history:: Adult Immunizations up to date. - Infectious Disease History:: Denies. - Social history:: Smoking status: Patient denies any tobacco usage or history of. - Family history:: not pertinent. Screenin:03 [facility] ED Fall Risk Assessment (Adult) History of falling in the last 3 months, vc1 including since admission No falls in past 3 months (0 pts) Confusion or Disorientation No (0 pts) Intoxicated or Sedated No (0 pts) Impaired Gait No (0 pts) Mobility Assist Device Used No (0 pt) Altered Elimination No (0 pt) Score/Fall Risk Level 0 - 2 = Low Risk Oriented to surroundings, Maintained a safe environment, Educated pt \T\ family on fall prevention, incl call for assistance when getting out of bed, Hourly rounding (assess needs \T\ fall precautionary measures) done. Abuse screen: Denies threats or abuse. Nutritional screening: No deficits noted. Tuberculosis screening: No symptoms or risk factors identified. Assessment: 03:09 Reassessment: Patient and/or family updated on plan of care and expected duration. Pain br2 level reassessed. Patient is alert, oriented x 3, equal unlabored respirations, skin warm/dry/pink. General: Appears uncomfortable, Behavior is calm, cooperative, anxious. Pain: Complains of pain in epigastric area Pain does not radiate. Pain: Pain currently is 7 out of 10 on a pain scale. Neuro: Harry Agitation-Sedation Scale (RASS): 0 - Alert and Calm Level of Consciousness is awake, alert, obeys commands, Oriented to person, place, time, situation. Cardiovascular: Capillary refill < 3 seconds Rhythm is sinus bradycardia. Respiratory: Denies shortness of breath. GI: Reports upper abdominal pain, nausea. : No signs and/or symptoms were reported regarding the genitourinary system. EENT: No signs and/or symptoms were reported regarding the EENT system. Derm: No signs and/or symptoms reported regarding the dermatologic system. Musculoskeletal: No signs and/or symptoms reported regarding the musculoskeletal system. 06:29 Reassessment: Patient is alert, oriented x 3, equal unlabored respirations, skin br2 warm/dry/pink. Patient states feeling better. Patient states symptoms have improved. Pain: Denies pain. 07:19 Reassessment: Patient appears in no apparent distress at this time. No changes from kc6 previously documented assessment. Patient and/or family updated on plan of care and expected duration. Pain level reassessed. Patient is alert, oriented x 3, equal unlabored respirations, skin warm/dry/pink. Vital Signs: 02:55 Pulse 71; Resp 20; Temp 98; Pulse Ox 100% ; Weight 90.72 kg; Height 5 ft. 9 in. ; Pain vc1 8/10; 03:15 BP 113 / 82; Pulse 53; Resp 14 S; Pulse Ox 100% on R/A; br2 05:24 BP 104 / 75; Pulse 48; Resp 13 S; Pulse Ox 95% on R/A; Pain 0/10; br2 06:07 BP 111 / 81; Pulse 52; Resp 16; Pulse Ox 95% ; Pain 0/10; br2 06:59 BP 111 / 81; Pulse 54; Resp 15; Pulse Ox 96% on R/A; br2 02:55 Body Mass Index 29.53 (90.72 kg, 175.26 cm) vc1 02:55 Pain Scale: Adult vc1 05:24 Pain Scale: Adult br2 06:07 Pain Scale: Adult br2 Rosita Coma Score: 06/07 04:41 Eye Response: spontaneous(4). Motor Response: obeys commands(6). Verbal Response: sp4 oriented(5). Total: 15. ED Course: 06/06 02:40 Patient arrived in ED. jj6 02:52 Damian Hardy MD is Attending Physician. vc1 03:01 Triage completed. vc1 03:03 Arm band placed on right wrist. vc1 03:08 Clara Thorne RN is Primary Nurse. br2 03:11 Inserted saline lock: 20 gauge in left antecubital area, using aseptic technique. Blood br2 collected. Flushed with 10 mL NS. 03:42 XRAY Chest (1 view) In Process Unspecified. EDMS 04:10 US Abdomen Limited In Process Unspecified. EDMS 04:19 CT Abd/Pelvis - IV Contrast Only In Process Unspecified. EDMS 07:00 Report received from KELLY Elizabeth. kc6 07:00 Patient has correct armband on for positive identification. Bed in low position. Call kc6 light in reach. Side rails up X 1. gambling monitor on. Pulse ox on. NIBP on. Door closed. Noise minimized. Lights dimmed. Warm blanket given. Pillow given. Verbal reassurance given. 07:00 Patient maintains SpO2 saturation greater than 95% on room air. kc6 07:23 Sarwat Cooney MD is Referral Physician. sp4 07:41 No provider procedures requiring assistance completed. IV discontinued, intact, kc6 bleeding controlled, No redness/swelling at site. Pressure dressing applied. Administered Medications: 03:00 Drug: morphine IVP or IV 4 mg IVP once over 4 mins Route: IVP; Infused Over: 4 mins; br2 Site: left antecubital; 03:30 Follow up: Response: Pain is decreased br2 03:50 Drug: Pantoprazole IVP 40 mg IVP once Route: IVP; Site: left antecubital; br2 04:18 Follow up: Response: No adverse reaction br2 03:51 Drug: metoCLOPramide IVP 10 mg IVP once; over 1 to 2 minutes Route: IVP; Site: left br2 antecubital; 04:18 Follow up: Response: No adverse reaction br2 03:55 Drug: Ondansetron IVP 4 mg IVP once; over 2 minutes Route: IVP; Site: left antecubital; br2 04:17 Follow up: Response: No adverse reaction br2 03:55 Drug: morphine IVP or IV 4 mg IVP once over 4 mins Route: IVP; Infused Over: 4 mins; br2 Site: left antecubital; 04:17 Follow up: Response: Pain is decreased br2 03:55 Drug: GI Cocktail without - (Maalox PO 30 ml, Lidocaine Mucous Membrane 2 % 15 br2 ml) PO once Route: PO; 04:18 Follow up: Response: No adverse reaction; Pain is decreased br2 03:56 Drug: NS 0.9% IV 1000 ml IV at 1 bolus Per protocol; to be given as a bolus over 60 br2 minutes Route: IV; Rate: 1 bolus; Site: left antecubital; 07:20 Follow up: Response: No adverse reaction; IV Status: Completed infusion; IV Intake: kc6 1000ml 03:56 Drug: Famotidine IVP 20 mg IVP once; dilute with 10 mL 0.9% NaCl; give over 2 minutes br2 Route: IVP; Site: left antecubital; 04:17 Follow up: Response: No adverse reaction br2 04:16 Drug: Droperidol IVP 1.25 mg IVP once Route: IVP; Site: left antecubital; br2 04:18 Follow up: Response: No adverse reaction br2 Medication: 07:42 VIS not applicable for this client. kc6 Intake: 07:20 IV: 1000ml; Total: 1000ml. kc6 Outcome: 07:24 Discharge ordered by MD. bishop 07:41 Discharged to home ambulatory, with significant other, kc6 07:41 Condition: improved 07:41 Discharge instructions given to patient, Instructed on discharge instructions, follow up and referral plans. no drinking with medication, no driving heavy equipment, medication usage, Demonstrated understanding of instructions, follow-up care, medications, Prescriptions given X 1, 07:42 Patient left the ED. kc6 Signatures: Dispatcher [employer] EDMS Beata Orozco jj6 Georgie Stock RN RN vc1 Lanny Campa RN RN kc6 Damian Hardy MD MD sp4 Clara Thorne RN RN br2
--- NOTE | 2024-06-06 07:25 | EDPHYS ---
Physician Documentation [facility] Name: Kyree Flower Age: 33 yrs Sex: Male : 1990 Arrival Date: 06/06/2024 Time: 02:38 Bed 4 Private MD: ED Physician Damian Hardy HPI: 06/06 03:19 This 33 yrs old Male presents to ER via Ambulatory with complaints of Chest sp4 Pain, Abdominal Pain. 06/07 04:40 33-year-old male presents with complaint of chest pain, and abdominal pain.. sp4 Historical: - Allergies: 06/06 03:02 No Known Allergies; vc1 - Home Meds: 03:02 None [Active]; vc1 - PMHx: 03:02 None; vc1 - PSHx: 03:02 skin ca removal; Vasectomy; vc1 - Immunization history:: Adult Immunizations up to date. - Infectious Disease History:: Denies. - Social history:: Smoking status: Patient denies any tobacco usage or history of. - Family history:: not pertinent. ROS: 06/07 04:40 Constitutional: Negative for fever, chills, and weight loss, positive chest pain, sp4 positive abdominal pain All other systems are negative, Exam: 04:41 Constitutional: This is a well developed, well nourished patient who is awake, alert, sp4 and in no acute distress. Head/Face: Normocephalic, atraumatic. Eyes: Pupils equal round and reactive to light, extra-ocular motions intact. Lids and lashes normal. Conjunctiva and sclera are not injected. Cornea within normal limits. Periorbital areas with no swelling, redness, or edema. ENT: Nares patent. No nasal discharge, no septal abnormalities noted. Tympanic membranes are normal and external auditory canals are clear. Oropharynx with no redness, swelling, or masses, exudates, or evidence of obstruction, uvula midline. Mucous membranes moist. Neck: Trachea midline, no thyromegaly or masses palpated, and no cervical lymphadenopathy. Supple, full range of motion without nuchal rigidity, or vertebral point tenderness. Chest/axilla: Normal chest wall appearance and motion. Nontender with no deformity. No lesions are appreciated. Cardiovascular: Regular rate and rhythm with a normal S1 and S2. No gallops, murmurs, or rubs. Normal PMI, no JVD. No pulse deficits. Respiratory: Lungs have equal breath sounds bilaterally, clear to auscultation and percussion. No rales, rhonchi or wheezes noted. No increased work of breathing, no retractions or nasal flaring. Abdomen/GI: Soft, with normal bowel sounds. No distension or tympany. No guarding or rebound. No evidence of tenderness throughout. Back: No spinal tenderness. No costovertebral tenderness. Skin: Warm, dry with normal turgor. Normal color with no rashes, no lesions, and no evidence of cellulitis. MS/ Extremity: Pulses equal, no cyanosis. Neurovascular intact. Full, normal range of motion. Neuro: Awake and alert, GCS 15, oriented to person, place, time, and situation. Cranial nerves II-XII grossly intact. Motor strength 5/5 in all extremities. Sensory grossly intact. Psych: Awake, alert, with orientation to person, place and time. Behavior, mood, and affect are within normal limits Vital Signs: 06/06 02:55 Pulse 71; Resp 20; Temp 98; Pulse Ox 100% ; Weight 90.72 kg; Height 5 ft. 9 in. ; Pain vc1 8/10; 03:15 BP 113 / 82; Pulse 53; Resp 14 S; Pulse Ox 100% on R/A; br2 05:24 BP 104 / 75; Pulse 48; Resp 13 S; Pulse Ox 95% on R/A; Pain 0/10; br2 06:07 BP 111 / 81; Pulse 52; Resp 16; Pulse Ox 95% ; Pain 0/10; br2 06:59 BP 111 / 81; Pulse 54; Resp 15; Pulse Ox 96% on R/A; br2 02:55 Body Mass Index 29.53 (90.72 kg, 175.26 cm) vc1 02:55 Pain Scale: Adult vc1 05:24 Pain Scale: Adult br2 06:07 Pain Scale: Adult br2 Rosita Coma Score: 06/07 04:41 Eye Response: spontaneous(4). Motor Response: obeys commands(6). Verbal Response: sp4 oriented(5). Total: 15. MDM: 06/06 03:16 Medical Screening Exam initiated sp4 06/07 04:41 Differential diagnosis: chest wall pain, esophagitis, gastritis, hiatal hernia, sp4 pancreatitis, stable angina. Data reviewed: vital signs, nurses notes. 04:42 HEART Score: History: Slightly Suspicious (0), ECG: Normal (0), Age: < or = 45 years sp4 (0), Risk Factors: No Risk Factors Known (0), Troponin: < or = 1 x Normal Limit (0), Total Score = 0. Data reviewed: lab test result(s), EKG, radiologic studies, CT scan, ultrasound. 04:43 ED course: CT - IMPRESSION: XR Chest, 1 View: No acute findings in the chest. CTAbdomen sp4 and Pelvis With Intravenous Contrast: No acute finding in the abdomen/pelvis. US Abdomen Limited, Gallbladder: Cholelithiasis. Gallbladder sludge. No gallbladder wall thickening. No pericholecystic fluid.. ED course: EXAM: US Abdomen Limited, Gallbladder CLINICAL HISTORY: The patient is 33 years old and is Male; CHEST PAIN TECHNIQUE: Real-time ultrasound of the right upper quadrant with image documentation. COMPARISON: No relevant prior studies available. FINDINGS: Gallbladder: Cholelithiasis. Gallbladder sludge. No gallbladder wall thickening. No pericholecystic fluid. Common bile duct: Common bile duct is normal. No stones. No dilation. * A single impression for all exams can be found at the end of this report. 04:44 ED course: We suspected peptic ulcer disease. Patient advised Protonix once a day. 06/06 02:53 Order name: Basic Metabolic Panel; Complete Time: 03:25 1 06/06 02:53 Order name: CBC with Diff; Complete Time: 03:25 1 06/06 02:53 Order name: Troponin HS; Complete Time: 03:25 06/06 03:25 Order name: Lipase; Complete Time: 06:53 4 06/06 03:27 Order name: CRP; Complete Time: 06:53 06/06 06:33 Order name: Lipase br2 06/06 06:35 Order name: Troponin High Sensitivity; Complete Time: 07:19 06/06 02:53 Order name: XRAY Chest (1 view) 06/06 03:26 Order name: CT Abd/Pelvis - IV Contrast Only 06/06 03:26 Order name: US Abdomen Limited 06/06 02:53 Order name: Cardiac monitoring; Complete Time: 02:54 vc1 06/06 02:53 Order name: EKG - Nurse/Tech; Complete Time: 02:54 vc1 06/06 02:53 Order name: IV Saline Lock; Complete Time: 02:54 vc1 06/06 02:53 Order name: Labs collected and sent; Complete Time: 02:54 vc1 06/06 02:53 Order name: O2 Per Protocol; Complete Time: 02:54 vc1 06/06 02:53 Order name: O2 Sat Monitoring; Complete Time: 02:54 vc1 Administered Medications: 06/06 03:00 Drug: morphine IVP or IV 4 mg IVP once over 4 mins Route: IVP; Infused Over: 4 mins; br2 Site: left antecubital; 03:30 Follow up: Response: Pain is decreased br2 03:50 Drug: Pantoprazole IVP 40 mg IVP once Route: IVP; Site: left antecubital; br2 04:18 Follow up: Response: No adverse reaction br2 03:51 Drug: metoCLOPramide IVP 10 mg IVP once; over 1 to 2 minutes Route: IVP; Site: left br2 antecubital; 04:18 Follow up: Response: No adverse reaction br2 03:55 Drug: Ondansetron IVP 4 mg IVP once; over 2 minutes Route: IVP; Site: left antecubital; br2 04:17 Follow up: Response: No adverse reaction br2 03:55 Drug: morphine IVP or IV 4 mg IVP once over 4 mins Route: IVP; Infused Over: 4 mins; br2 Site: left antecubital; 04:17 Follow up: Response: Pain is decreased br2 03:55 Drug: GI Cocktail without - (Maalox PO 30 ml, Lidocaine Mucous Membrane 2 % 15 br2 ml) PO once Route: PO; 04:18 Follow up: Response: No adverse reaction; Pain is decreased br2 03:56 Drug: NS 0.9% IV 1000 ml IV at 1 bolus Per protocol; to be given as a bolus over 60 br2 minutes Route: IV; Rate: 1 bolus; Site: left antecubital; 07:20 Follow up: Response: No adverse reaction; IV Status: Completed infusion; IV Intake: kc6 1000ml 03:56 Drug: Famotidine IVP 20 mg IVP once; dilute with 10 mL 0.9% NaCl; give over 2 minutes br2 Route: IVP; Site: left antecubital; 04:17 Follow up: Response: No adverse reaction br2 04:16 Drug: Droperidol IVP 1.25 mg IVP once Route: IVP; Site: left antecubital; br2 04:18 Follow up: Response: No adverse reaction br2 Disposition: 06/07 04:44 Chart complete. sp4 Disposition Summary: 06/06/24 07:24 Discharge Ordered Problem: new sp4 Symptoms: have improved sp4 Condition: Stable sp4 Diagnosis - Epigastric pain sp4 - Suspected peptic ulcer disease, acute epigastric abdominal pain , history of sp4 gastroesophageal acid reflux Followup: sp4 - With: Sarwat Cooney MD - When: 7 - 10 days - Reason: Recheck today's complaints Discharge Instructions: - Discharge Summary Sheet sp4 - Peptic Ulcer, Qinb-po-Rspi sp4 Forms: - Patient Portal Instructions sp4 Prescriptions: - Protonix 40 mg Oral tablet, delayed release (enteric coated) - take 1 tablet ORAL route once daily; 90 tablet; Refills: 0, Product Selection sp4 Permitted Addendum: 06/08/2024 21:58 Addendum: EKG at 06/06/2024 EKG time 0 2:45 AM normal sinus rhythm rate 66, no ST s p4 elevation or depression, low voltage QRS noted, no ectopy, normal axis, otherwise no signs of acute ischemic changes.. Signatures: Dispatcher [employer] EDMS Georgie Stock RN RN vc1 Damian Hardy MD MD sp4 Clara Thorne RN RN br2 Lanny Campa RN kc6 Corrections: (The following items were deleted from the chart) 06/06 02:54 02:54 Chest Single View+[email or web address] ordered. EDMS EDMS
[2024-06-06 07:50] VITALS: TEMP 98
[2024-06-06 08:07] VITALS: BP 111/81
[2024-06-06 08:09] VITALS: O2SAT 96
--- NOTE | 2024-06-09 12:49 | EKG ---
Test Date: 2024-06-06 Test Time: 02:45:46 Telegraph Lineman: MM MEASUREMENT RESULTS: Intervals: Rate: 66 [place]: 168 QRSD: 78 QT: 426 QTc: 446 [place]: P: 31 [place]: 168 QRS: -6 T: 28 INTERPRETIVE STATEMENTS: Normal sinus rhythm Low voltage QRS Cannot rule out Anterior infarct, age undetermined Abnormal ECG Compared to ECG 09/25/2021 13:08:59 No significant changes Electronically Signed On 06-09-24 12:41:18 CDT by Abiodun Dela Cruz
== END 2024-06-06 07:42 | disposition home or self-care (01) ==
LOC: ER 02:38
DX: R10.13 Epigastric pain (principal); K21.9 Gastro-esophageal reflux disease without esophagitis; R07.9 Chest pain, unspecified
CPT/HCPCS: 96361; 93005; 85025; 80048; 36415; 84484 ×2; 83690; 86140; 74177; 71045; 76705; 96375; 96374; 99285; Q9967; J2765; J2470; J2405; J1790; J7030

== ENCOUNTER 2024-06-11 13:16 | Day surgery (SDC) | payer BC ==
[2024-06-11 08:28] LABS: Absolute Eosinophils 0.1 K/uL (0-0.5); Absolute Lymphocytes (CBC) 2.4 K/uL (0.7-4.9); Absolute Monocytes 0.9 K/uL (0.1-1.3); Absolute Neutrophil 2.9 K/uL (1.8-8.0); Basophils % 0.7 % (0-1.3); Eosinophils % 1.5 % (0-4.4); Hematocrit 44.7 % (39.6-49.0); Hemoglobin 15.9 g/dL (13.6-17.9); Lymphocytes % 38.1 % (15.3-44.8); MCH 30.3 pg (27.0-35.0); MCHC 35.5 g/dL (32.0-36.0); MCV 85.5 fL (80-100); MPV 6.7 fL (7.6-11.3); Monocytes % 13.6 % (3.3-12.3); Neutrophils % 46.1 % (41.7-73.7); Nucleated Red Blood Cells % 0.1 % (0-0); Platelets 402 thou/uL (152-406); RBC Red Blood Cell Count 5.23 M/uL (4.33-5.43); Red Cell Distribution Width 13.7 % (12.1-15.2)
[2024-06-11 09:00] LABS: Albumin 4.1 g/dL (3.4-5.0); Albumin/Globulin Ratio 1.1 (1.1-1.8); Anion Gap 9.6 mEq/L (5.0-15.0); Bilirubin Direct 0.3 mg/dL (0-0.2); Bilirubin Indirect, Calculated 1.5 mg/dL (0.2-0.8); Bilirubin Total 1.8 mg/dL (0.2-1.0); Globulin 3.6 g/dL (2.3-3.5); Potassium 4.6 mEq/L (3.5-5.1); Protein, Total 7.7 g/dL (6.4-8.2)
[2024-06-11] MEDS: Ringers Lactate 1,000 ML IV ONE (13:45)
[2024-06-11] MEDS ORDERED: MIDAZOLAM HCL 2 MG/2 ML INJ ONE (14:26)
[2024-06-11] MEDS ORDERED: ONDANSETRON 4 MG/2 ML VIAL ONE (14:26)
[2024-06-11] MEDS ORDERED: LIDOCAINE 2% MPF 5 ML VIAL ONE (14:26)
[2024-06-11] MEDS ORDERED: ROCURONIUM 50 MG/5 ML VIAL IV ONE (14:26)
[2024-06-11] MEDS ORDERED: propofoL 200 MG/20 ML VIAL IV ONE (14:26)
[2024-06-11] MEDS ORDERED: FENTANYL CITR 100 MCG/2 ML ONE ×2 (14:26→15:36)
[2024-06-11] MEDS ORDERED: SUGAMMADEX SODIUM 200 MG/2 ML VIAL IV ONE (14:36)
[2024-06-11] MEDS: CEFOXITIN SODIUM 1 GM/VIAL ONE (15:22)
[2024-06-11] MEDS ORDERED: dexAMETHasone 10 MG/ML VIAL ONE (15:23)
[2024-06-11] MEDS ORDERED: KETOROLAC 30 MG/ML INJ ONE (15:38)
[2024-06-11] MEDS ORDERED: GLYCOPYRROLATE 0.2 MG/ML SYR ONE (15:39)
[2024-06-11] MEDS ORDERED: Mastisol Adhesive Liq ONE (15:48)
--- NOTE | 2024-06-11 15:53 | P.BOP ---
Preoperative diagnosis: acute cholecystitis, symptomatic cholelithiasis Postoperative diagnosis: same Primary procedure: Laparoscopic cholecystectomy Commanding Officer Garage: Val Bolden (Carlos) Estimated blood loss: <10cc Specimen: gb Findings: as above Anesthesia: General Complications: None Transferred to: Recovery Room Condition: Good
[2024-06-11 16:36] VITALS: TEMP 97.7
[2024-06-11] MEDS: CODEINE 30MG/APAP 300MG TAB ONE (17:11)
[2024-06-11 17:36] VITALS: BP 127/72; O2SAT 98
--- NOTE | 2024-06-12 00:35 | OP ---
Date of Procedure: 06/11/2024 Surgeon: Linus Howard MD Watch Adjuster: JUAN Tol[place]. Preoperative Diagnoses: Acute cholecystitis, symptomatic cholelithiasis. Postoperative Diagnoses: Acute cholecystitis, symptomatic cholelithiasis. Procedure: Laparoscopic cholecystectomy. Estimated Blood Loss: Less than 10 cc. Specimen: Gallbladder. Anesthesia: General plus local. Indications: This is the case of a 33-year-old patient comes to us with acute cholecystitis, symptom atic cholelithiasis. The benefits, alternatives, and risks of laparoscopic possible open cholecystec yves was fully explained, which include, but not limited to infection, bleeding, damage to adjacent s tructures, anesthesia complication, choledocholithiasis, bile leak, pancreatitis, PR, and even . He also understands this may not relieve symptoms. He might need more than one surgical interventi on. He understood, signed a consent. Description Of Procedure: The patient was brought to the operating room, placed in supine position. Anesthesia was induced without complication. Abdominal area was prepped and draped in the usual alexander rile fashion. Marcaine 0.5% was injected for local anesthetic followed by sharp incision of the skin in the periumbilical region. Incision was carried down to fascia, which was opened under direct vis ion. Peritoneum was encountered, opened under direct vision. Vicryl #1 was placed inside the fascia . Ricky trocar was carefully introduced. Pneumoperitoneum was obtained. I placed 3 more trocars, 5 mm each one of them, 1 in epigastric area, 2 in the right upper quadrant using same technique, whic h consisted of local anesthetic. Sharp incision of the skin, introduction of the trocars under direc t vision. This allowed me to put a grasper in the fundus of the gallbladder, another grasper in the infundibulum. Retracted the gallbladder in the inferolateral fashion, exposed the triangle of Calot, obtained critical view. Cystic duct and cystic artery were clearly isolated, freed circumferentiall y, and a connection between those and the gallbladder were clearly identified. I proceeded to ligate those by using at least 3 clips proximal, 1 clip distal, ligated in middle. Same was done with the cystic artery. No bile leak, no bleeding. The gallbladder was removed from liver using Bovie caute rizer and removed from abdominal cavity using EndoCatch through the umbilical incision. The area was inspected once again. No bile leak, no bleeding. At that moment, I proceeded to remove the trocars under direct vision, deflated pneumoperitoneum, closed the fascia #1 Vicryl, irrigated subcutaneous tissue, closed that with 3-0 chromic, and skin approximated. Sponge count and instrument count was c orrect. The patient tolerated the procedure well. The patient was sent to recovery in stable condit ion. SATNAM/MODL Voice ID: [id number] Report ID: [id number]
== END 2024-06-11 17:30 | disposition home or self-care (01) ==
LOC: OR 13:16
PROVIDERS: ATTEND Surgery
PROC: 0FT44ZZ Resection of Gallbladder, Percutaneous Endoscopic Approach (ICD-10-PCS; principal; 2024-06-11 15:30)
DX: K80.10 Calculus of gallbladder with chronic cholecystitis without obstruction (principal)
CPT/HCPCS: 85025; 80048; 36415; 80076; 83690; 47562; J2704; J2003; J2250; J3010 ×2; J1100; J0694; J2405; J7120; 88304